=== PATIENT | female | born 1970 | race Two or more races ===

== ENCOUNTER 2020-04-18 12:40 | Outpatient (CLI) | payer OTHER | END 2020-04-18 23:59 | disposition home or self-care (01) | LOC: XR 12:40 | PROVIDERS: ATTEND Specialist | DX: Z01.818 Encounter for other preprocedural examination (principal); T84.54XD Infection and inflammatory reaction due to internal left knee prosthesis, subsequent encounter; Z20.828 Contact with and (suspected) exposure to other viral communicable diseases | CPT/HCPCS: 71046; 87426; C9803; U0003 ==

== ENCOUNTER 2020-04-25 05:01 | Inpatient (IN) | payer OTHER ==
[~2020-04-25] VITALS: Ht 160 cm; Wt 58.1 kg
[~2020-04-25 05:01] MED LIST: ANESTHESIA TRAY IN PYXIS 1 EA TRAY MC ONE
[2020-04-25] MEDS ORDERED: HYDROMORPHONE INJ 2 MG/ML DISP.SYRIN ONE (06:31)
[2020-04-25] MEDS ORDERED: MIDAZOLAM HCL 2 MG/2ML VIAL ONE ×2 (06:31→09:19)
[2020-04-25] MEDS ORDERED: BUPIVACAINE 0.5 % PF 150 MG/30 ML VIAL ONE (06:32)
[2020-04-25] MEDS ORDERED: BACITRACIN 50000 UNITS/VIAL ONE (06:33)
[2020-04-25] MEDS ORDERED: TRANEXAMIC ACID 3,000 MG in SODIUM CHLORIDE IRRIG SOLUTION 70 ML IR ONE (07:00)
[2020-04-25] MEDS ORDERED: HYDROMORPHONE 1 MG/1 ML DISP.SYRIN ONE ×2 (08:51→09:15)
[2020-04-25] MEDS ORDERED: FENTANYL PF 100MCG/2ML AMPUL ONE (08:54)
--- NOTE | 2020-04-25 09:00 | NUR ---
RN OPENING NOTE RECEIVED PATIENT FROM OR, POST L KNEE SURGERY STATUS, KNEE BRACE IN PLACE, INTACT, NO S/SX OF BLEEDING NOTED, A/OX4, ON NC @ 2l, SPO2 IS 99%,NO SOB, OR DISTRESS NOTED REPORTS PAIN LEVEL OF 10/10,WAITING FOR PAIN MANAGEMENT MD TO VISIT HER, SAFETY MEASURES IN PLACE , CALL LIGHT IN REACH, BED IS LOCKED IN LOWEST POSITION, WILL CONT TO MONITOR CLOSELY
[2020-04-25] MEDS ORDERED: HYDROCODONE/APAP 5/325MG TABLET ONE (09:03)
[2020-04-25] MEDS ORDERED: FAMO40TA7 PO (10:01)
[2020-04-25 10:52] VITALS: BP 132/64
--- NOTE | 2020-04-25 11:19 | NUR ---
Patient complains on pain level 10/10 on her L knee, will administer PRN pain med
[2020-04-25] MEDS: HYDROMORPHONE 1 MG/1 ML DISP.SYRIN SQ PRN (11:21)
[2020-04-25 12:00] VITALS: BP 139/70
--- NOTE | 2020-04-25 12:00 | NUR ---
RN NOTE PER PT, HAS NOT RECEIVED INFLUENZA VACCINE THIS YEAR. OFFERED, PT REFUSED. TAUGHT PT BENEFITS OF FLU VAX AND STILL REFUSED
[2020-04-25] MEDS ORDERED: KEY,NONCONTROL,TO KEEP IN PYXI 1 EA MC ONE (12:23)
[2020-04-25] MEDS: HYDROMORPHONE MDV 30 MG in IV NS 0.9% 15 ML, PCA TOTAL VOLUME 1 BAG IV PRN ×3 (12:30)
[2020-04-25] MEDS ORDERED: ANCEF 1 G in IV D5W 50 ML IV SCH (13:30)
[2020-04-25] MEDS ORDERED: COLACE 250 MG CAPSULE PO PRN (13:30)
[2020-04-25] MEDS ORDERED: ZOFRAN 4mg/2ML IV PRN (13:30)
[2020-04-25] MEDS ORDERED: DULCOLAX 10 MG/SUPP.RECT RC PRN (13:30)
[2020-04-25] MEDS ORDERED: SENOKOT 8.6 MG TABLET PO PRN (13:30)
[2020-04-25] MEDS ORDERED: TYLENOL 650 MG TABLET PO PRN (13:30)
--- NOTE | 2020-04-25 13:35 | NUR ---
RN NOTE PER DR MORRIS, OKAY TO GIVE PT 10MG HYDROCODONE BECAUSE SENIOR TECHNICAL SUPPORT ENGINEER PUMP IS NOT WORKING AND PT \STATES 10/10 LT KNEE PAIN. PAIN MEDS ADMINISTERED PER DR LAU
[2020-04-25] MEDS: oxyCODONE IR immediate release 5 MG PO PRN ×2 (13:52→18:19)
[2020-04-25] MEDS ORDERED: diphenhydrAMINE HCL 25 MG CAPSULE PO PRN (14:00)
[2020-04-25] MEDS ORDERED: MAG HYDROX/AL HYDROX/SIMETH 30 ML UDC PO PRN (14:00)
[2020-04-25] MEDS ORDERED: MAGNESIUM HYDROXIDE 30 ML UDC PO PRN (14:00)
[2020-04-25] MEDS ORDERED: OXYC1TAB12 PO (14:01)
[2020-04-25] MEDS ORDERED: LACT1CAP57 PO (14:01)
[2020-04-25] MEDS ORDERED: VANCOMYCIN (14:01)
[2020-04-25] MEDS: ANCEF 1 GM/50 ML D5W IV SCH ×4 (15:09→22:00)
[2020-04-25 16:00] VITALS: BP 133/74
[2020-04-25] MEDS: DOCUSATE SODIUM 100 MG CAPSULE PO SCH (17:12)
[2020-04-25] MEDS: IV D5/0.45 NACL 1,000 ML IV PRN (18:23)
--- NOTE | 2020-04-25 19:15 | NUR ---
RN OPENING NOTES: RECEIVED PT A/OX4 IN BED RESTING COMFORTABLY.PATIENT IN NO S/SX OF ACUTE DISTRESS AT THIS TIME. NO SOB NOTED. PATIENT'S BREATHING IS EVEN AND UNLABORED. PATIENT ONLY SPEAKS [place]. PATIENT IS ON 2 L OF OXYGEN VIA NC; TOLERATING WELL WITH 02 SAT OF 100%. PATIENT ON MS STATUS. NOTED IV SITE ON R UA MIDLINE;PATENT, INTACT AND FLUSHING WELL; NO S/S OF INFECTION OR INFILTRATION. WITH IV FLUID RUNNING ORDERED. WITH ALSO ON PT CONTROLLED SENIOR WEB DEVELOPER PUMP SET UP PER PROTOCOL TO ADDRESS L KNEE PAIN PATIENT HAS BEDPAN OAT BEDSIDE. PATIENT CURRENTLY ON REGULAR DIET.SAFETY MEASURES HAVE BEEN PROVIDED AND IMPLEMENTED. PATIENT BED ALARM IS ON. HEAD OF BED ELEVATED. BED IS LOCKED, IN LOWEST POSITION AND SIDE RAILS UP. CALL LIGHT WITHIN REACH OF THE PATIENT. APPLICABLE ISOLATION PRECAUTIONS IN PLACE. WILL CONTINUE TO MONITOR AND REASSESS FOR ANY CHANGES AND WILL CARRY OUT ANY ONGOING AND ACTIVE MD ORDER.
--- NOTE | 2020-04-25 19:44 | NUR ---
RN CLOSING NOTE PT AWAKE IN BED, A/Ox4 ON NC 2LPM SPO2 100%, NO SIGNS OF SOB OR RESP DISTRESS, BREATHING UNLABORED. PT IS COOPERATIVE W CARE. MEDSURG PT ON PT CONTROLLED PROCESS SAFETY SPECIALIST PUMP SET UP PER DR ORDERS FOR LT KNEE PAIN. PT IS IN PAIN 8 - 10, PAIN MEDS ADMINISTERED PER DR ORDERS. PT IS ABLE TO AMBULATE PER PT W ASSIST AND WALKER. NO BM TODAY, PT ABLE TO VOID. PT HAS RT MIDLINE IV INFUSING D5 1/2 NS AND PT CONTROLLED PROCESS SAFETY SPECIALIST, INTACT AND PATENT. SAFETY PRECAUTIONS IN PLACE, BED LOCKED AND IN LOWEST POSITION, ID BAND ON, PT SEMI FOWLERS, CALL LIGHT WITHIN REACH, SR UP x2. CONTINUE TO MONITOR PT FOR BREAKTHROUGH PAIN. WILL ENDORSE CONTINUATION OF CARE TO ONCOMING NURSE.
[2020-04-25 20:00] VITALS: BP 119/49
[2020-04-25] MEDS ORDERED: VANCOMYCIN 1 GM in IV D5W 250 ML IV ONE (21:00)
[2020-04-25] MEDS: FAMOTIDINE (20 MG) 20 MG TABLET PO SCH (21:37)
[2020-04-25] MEDS ORDERED: AMBIEN 5 MG TABLET PO PRN (22:00)
--- NOTE | 2020-04-25 22:00 | NUR ---
RN NOTES NO NOTED CHANGES TO PATIENT CONDITION/STATUS. VICE ADMIRAL MADE AWARE. WILL CONTINUE TO MONITOR AND REASSESS FOR ANY CHANGES THROUGHOUT THE SHIFT.
--- NOTE | 2020-04-25 23:00 | NUR ---
RN NOTES NOTED ONE OF THE LUMEN OF THE MIDLINE NOT PATENT AFTER SEVERAL ATTEMPTS TO FLUSH. LOOM CLEANER MADE AWARE. FACILITATED INSERTION OF IV ACCESS ON THE R WRIST # 20. ENSURED THAT IV ACCESS TO BE PATENT, INTACT AND FLUSHING WELL. LOOM CLEANER MADE AWARE. WILL CONTINUE TO ASSESS AND MONITOR THROUGHOUT THE SHIFT.
[2020-04-26] MEDS ORDERED: KEY,NONCONTROL,TO KEEP IN PYXI 1 EA MC ONE ×2 (00:18→19:21)
[2020-04-26] MEDS: HYDROMORPHONE MDV 30 MG in IV NS 0.9% 15 ML, PCA TOTAL VOLUME 1 BAG IV PRN ×3 (00:20)
--- NOTE | 2020-04-26 02:00 | NUR ---
RN NOTES NO NOTED CHANGES TO PATIENT CONDITION/STATUS. HARD METALS HAND ENGRAVER MADE AWARE. WILL CONTINUE TO MONITOR AND REASSESS FOR ANY CHANGES THROUGHOUT THE SHIFT.
[2020-04-26] MEDS: IV D5/0.45 NACL 1,000 ML IV PRN ×3 (03:03→21:18)
[2020-04-26] MEDS: oxyCODONE IR immediate release 5 MG PO PRN ×5 (03:48→22:06)
--- NOTE | 2020-04-26 03:48 | NUR ---
RN NOTES PATIENT COMPLAINED OF PAIN AAFTER WAKING UP, PATIENT NOTED TO BE CRYING AND GUARDING BEHAVIOR. WILL ADMINISTER PRN MEDICATION NEEDED. OXY IR SCANNED @0348 GIVEN @0344. CPC CODER MADE AWARE. WILL CONTINUE TO ASSESS AND MONITOR
[2020-04-26 04:00] VITALS: BP 152/70
[2020-04-26] MEDS: HYDROMORPHONE 1 MG/1 ML DISP.SYRIN SQ PRN ×3 (04:02→16:48)
--- NOTE | 2020-04-26 04:30 | NUR ---
RN NOTES PATIENT STILL NOTED TO BE IN PAIN , PATIENT VERBALIZED PAIN AROUND 8,FROM A PAIN SCALE OF 0-10 WHEREIN 0 NO PAIN AND 10 WORST PAIN. PATIENT STILL NOTED TO BE CRYING , MOANING AND WITH GUARDING BEHAVIOR. WILL ADMINISTER ANOTHER PRN PAIN MEDICATION NEEDED. DILAUDID INJ 1ML VIA SB SCANNED AT 0402 ADMINISTERED TO PATIENT @0428. EVIDENCE SPECIALIST MADE AWARE. WILL CONTINUE TO MONITOR AND ASSESS FOR PAIN LEVEL AND VITAL SIGNS.
[2020-04-26 05:00] VITALS: BP 116/62
--- NOTE | 2020-04-26 05:05 | NUR ---
RN NOTES PAIN REASSESSMENT DONE; PATIENT VERBALIZED PAIN REDUCTION TO 2-3 AT THIS TIME. VITAL SIGNS RECHECKED FOLLOWS: BP: 116/62 HR: 90 TEMP: 98.8 RR: 18 O2 SAT: 98. MEAT PRESS OPERATOR MADE AWARE. WILL CONTINUE TO MONITOR AND REASSESS THROUGHOUT THE SHIFT.
[2020-04-26 06:34] LABS: BASOPHILS % (AUTO) 0.9 % (0.0-2.0); EOSINOPHILS % (AUTO) 2.3 % (0.0-6.0); HEMATOCRIT 30 % (33-45); HEMOGLOBIN 9.9 g/dL (11.5-14.8); LYMPHOCYTES # (AUTO) 0.8 /CMM (0.8-4.8); LYMPHOCYTES % (AUTO) 20.6 % (20.0-44.0); MEAN CORPUSCULAR HGB CONC 33 g/dl (31.0-36.0); MEAN CORPUSCULAR VOLUME 84 fL (82-100); MONOCYTES # (AUTO) 0.7 /CMM (0.1-1.30); MONOCYTES % (AUTO) 17.1 % (2.0-12.0); NEUTROPHILS # (AUTO) 2.3 /CMM (1.8-8.9); NEUTROPHILS % (AUTO) 59.1 % (43.0-81.0); PLATELET COUNT (AUTO) 262 /CMM (150-450); RED BLOOD CELL COUNT(AUTO) 3.54 MIL/uL (4.0-5.2); WHITE BLOOD COUNT (AUTO) 3.9 K/uL (4.3-11.0)
--- NOTE | 2020-04-26 06:45 | NUR ---
RN NOTES PATIENT REMAINS IN ROOM IN NO SIGNS OF RESPIRATORY DISTRESS. PATIENT SATURATING 100% OF 02. VITAL SIGNS WNL. IV LINE MAINTAINED, INTACT, PATENT AND FLUSHING, NO SITE REDNESS OR INFILTRATION. SAFETY PRECAUTIONS IN PLACE AND COMFORT MEASURES RENDERED. BED IN LOWEST POSITION, CALL LIGHT WITHIN REACH, BREAKS ON, SIDE RAILS UP. ALL NEEDS ATTENDED, MEDICATIONS GIVEN SCHEDULED AND ORDERED ; SHIFT ASSESSMENT/BEDBATH/SKIN CARE DONE. PATIENT KEPT CLEAN AND DRY. WILL ENDORSE TO INCOMING SHIFT FOR LEWIS WITH ALL PERTINENT INFO REGARDING PATIENT STATUS.
[2020-04-26 06:59] LABS: CALCIUM, SERUM 8.4 mg/dL (8.5-10.1); CREATININE 0.5 mg/dL (0.6-1.3); POTASSIUM 3.3 mmol/L (3.5-5.1)
--- NOTE | 2020-04-26 07:15 | NUR ---
RN OPENING NOTES RECEIVED PT AWAKE, A/O X4. ON 2 L OF OXYGEN VIA NC SATURATING @100%. NO SOB OR ANY ACUTE DISTRESS AT THIS TIME. PT SPEAKS [place] BUT UNDERSTANDS LITTLE DANISH. IV SITE ON R UA MIDLINE INTACT, PATENT AND FLUSHED. ON CONTROLLED ACID BLOWER PUMP SET UP PER PROTOCOL TO ADDRESS L KNEE PAIN. PT USES BEDPAN AT BEDSIDE. REGULAR DIET. SAFETY MEASURES IMPLEMENTED. CALL LIGHT WITHIN REACH. BED LOCKED AND IN LOWEST POSITION WITH SIDE RAILS UP X2. BED ALARM ON. HEAD OF BED ELEVATED. WILL CONTINUE TO MONITOR.
[2020-04-26] MEDS: DOCUSATE SODIUM 100 MG CAPSULE PO SCH ×2 (08:53→17:00)
[2020-04-26] MEDS: FAMOTIDINE (20 MG) 20 MG TABLET PO SCH ×2 (08:53→21:20)
[2020-04-26] MEDS: ASPIRIN EC 325 MG TABLET.DR PO SCH (08:53)
[2020-04-26] MEDS ORDERED: VANCOMYCIN 1 GM in IV D5W 250 ML IV SCH (09:00)
--- NOTE | 2020-04-26 09:00 | NUR ---
RN NOTES DR. MORRIS ORDERED TO CONSUME MECHANICAL CAR CHECKER. CARRIED OUT.
[2020-04-26 10:05] LABS: EOSINOPHILS % (MANUAL) 3 % (0-4); LYMPHOCYTES % (MANUAL) 19 % (16-48); MONOCYTES % (MANUAL) 11 % (0-11.0); NEUTROPHILS % (MANUAL) 67 (42-76)
[2020-04-26] MEDS ORDERED: POTASSIUM CHLORIDE 20 MEQ TAB.PRT.SR PO SCH (11:00)
[2020-04-26] MEDS: VANCOMYCIN 1 GM in IV D5W 250 ML IV SCH ×2 (11:26→19:46)
[2020-04-26 12:00] VITALS: BP 140/64
[2020-04-26] MEDS ORDERED: ASPI-869 PO (13:31)
[2020-04-26] MEDS ORDERED: SENN-261 PO (13:31)
[2020-04-26] MEDS ORDERED: VANC1FRO2 IV (13:31)
[2020-04-26] MEDS ORDERED: OXYC5CAP18 PO (13:31)
--- NOTE | 2020-04-26 19:15 | NUR ---
RN NOTES: RECEIVED PT A/OX4 IN BED RESTING COMFORTABLY.PATIENT IN NO S/SX OF ACUTE DISTRESS AT THIS TIME. NO SOB NOTED. PATIENT'S BREATHING IS EVEN AND UNLABORED. PATIENT ONLY SPEAKS GREENLAND[place]. PATIENT IS ON 2L OF OXYGEN VIA NC; TOLERATING WELL WITH 02 SAT OF 100%. PATIENT ON MS STATUS. NOTED IV SITE ON R UA MIDLINE AND R WRIST #20; BOTH PATENT, INTACT AND FLUSHING WELL; NO S/S OF INFECTION OR INFILTRATION. WITH IV FLUID RUNNING ORDERED.PATIENT HAS BEDPAN AT BEDSIDE. PATIENT CURRENTLY ON REGULAR DIET.SAFETY MEASURES HAVE BEEN PROVIDED AND IMPLEMENTED. PATIENT BED ALARM IS ON. HEAD OF BED ELEVATED. BED IS LOCKED,IN LOWEST POSITION AND SIDE RAILS UP. CALL LIGHT WITHIN REACH OF THE PATIENT. APPLICABLE ISOLATION PRECAUTIONS IN PLACE. WILL CONTINUE TO MONITOR AND REASSESS FOR ANY CHANGES AND WILL CARRY OUT ANY ONGOING AND ACTIVE MD ORDER.
--- NOTE | 2020-04-26 19:38 | NUR ---
RN OPENING NOTES PT AWAKE, A/O X4. ON 2 L OF OXYGEN VIA NC SATURATING @100%. NO SOB OR ANY ACUTE DISTRESS AT THIS TIME. PT SPEAKS [place] BUT UNDERSTANDS LITTLE ARMENIAN. IV SITE ON R UA MIDLINE INTACT, PATENT AND FLUSHED. PT USES BEDPAN AT BEDSIDE. REGULAR DIET. SAFETY MEASURES IMPLEMENTED. CALL LIGHT WITHIN REACH. BED LOCKED AND IN LOWEST POSITION WITH SIDE RAILS UP X2. BED ALARM ON. HEAD OF BED ELEVATED. WILL ENDORSE TO NIGHT NURSE FOR LEWIS.
[2020-04-26 20:00] VITALS: BP 135/68
--- NOTE | 2020-04-26 22:30 | NUR ---
RN NOTES NO NOTED CHANGES TO PATIENT CONDITION/STATUS. ORDER ENTRY MADE AWARE. WILL CONTINUE TO MONITOR AND REASSESS FOR ANY CHANGES THROUGHOUT THE SHIFT.
--- NOTE | 2020-04-27 03:00 | NUR ---
RN NOTES NO NOTED CHANGES TO PATIENT CONDITION/STATUS. CARPENTER'S HELPER MADE AWARE. WILL CONTINUE TO MONITOR AND REASSESS FOR ANY CHANGES THROUGHOUT THE SHIFT. CALL LIGHT WITHIN REACH.
[2020-04-27] MEDS: VANCOMYCIN 1 GM in IV D5W 250 ML IV SCH ×2 (03:24→11:00)
[2020-04-27 04:00] VITALS: BP 102/60
[2020-04-27] MEDS: IV D5/0.45 NACL 1,000 ML IV PRN (05:04)
[2020-04-27] MEDS: oxyCODONE IR immediate release 5 MG PO PRN ×4 (05:06→18:31)
--- NOTE | 2020-04-27 06:05 | NUR ---
RN NOTES RECEIVED CALL FROM CHECKING ON THE CURRENT STATUS OF PT AND PAIN EXPERIENCE, RN ADVISED HIM THAT PT STILL HAS EPISODES OF PAIN BUT VERY MUCH TOLERABLE COMPARED TO THE PREVIOUS DAYS. MD WAS ADVISED THAT PT WAS GIVEN PRN PAIN MEDICATIONS @2007 (TYLENOL) AND @0506 (OXYCODONE). MD SAID TO CALL HIM IF THERE'S ANY SIGNIFICANT CHANGES OR ANY NEEDS TO BE ADDRESSED. RN ACKNOWLEDGED. MEDICAL CARE ADMINISTRATOR MADE AWARE. WILL CONTINUE TO ASSESS AND MONITOR UNTIL THE END OF SHIFT.
[2020-04-27 06:06] LABS: CREATININE 0.7 mg/dL (0.6-1.3); POTASSIUM 3.7 mmol/L (3.5-5.1)
--- NOTE | 2020-04-27 06:50 | NUR ---
RN CLOSING NOTE: PATIENT REMAINS IN ROOM. NO SIGNS OF RESPIRATORY DISTRESS. SAFETY MEASURES IMPLEMENTED, BED IN LOWEST POSITION, LOCKED, SIDE RAILS UP, CALL LIGHT WITHIN REACH. ALL NEEDS AND ORDERS ADDRESSED DURING THE SHIFT. ALL DUE MEDS GIVEN ORDERED & SCHEDULED ; PATIENT TOLERATED WELL.PATIENT KEPT CLEAN AND COMFORTABLE WITHIN THE SHIFT. ENDORSED TO INCOMING SHIFT RN FOR CONTINUITY OF CARE.
--- NOTE | 2020-04-27 07:05 | NUR ---
RN OPENING NOTES RECEIVED PT AWAKE, A/O X4. ON 2 L OF OXYGEN VIA NC SATURATING @100%. NO SOB OR ANY ACUTE DISTRESS AT THIS TIME. PT SPEAKS GREEK BUT UNDERSTANDS LITTLE NIGERIAN. IV SITE ON R UA MIDLINE INTACT, PATENT AND FLUSHED. PT USES BEDPAN AT BEDSIDE. REGULAR DIET. SAFETY MEASURES IMPLEMENTED. CALL LIGHT WITHIN REACH. BED LOCKED AND IN LOWEST POSITION WITH SIDE RAILS UP X2. BED ALARM ON. HEAD OF BED ELEVATED. WILL CONTINUE TO MONITOR.
[2020-04-27] MEDS: FAMOTIDINE (20 MG) 20 MG TABLET PO SCH (08:24)
[2020-04-27] MEDS: ASPIRIN EC 325 MG TABLET.DR PO SCH (08:24)
[2020-04-27] MEDS: DOCUSATE SODIUM 100 MG CAPSULE PO SCH ×2 (08:24→17:00)
[2020-04-27] MEDS: HYDROMORPHONE 1 MG/1 ML DISP.SYRIN SQ PRN ×2 (10:49→15:26)
[2020-04-27 12:00] VITALS: BP 133/70
--- NOTE | 2020-04-27 13:49 | NUR ---
FOLLOWUP WITH DRAFTER PLUMBING PETER STILL PENDING PLACEMENT.
--- NOTE | 2020-04-27 17:30 | NUR ---
RN NOTES REPORT GIVEN TO ASHOK LYON OF [facility]. STATOR PLATE WASHER TIME AROUND 1800
--- NOTE | 2020-04-27 19:00 | NUR ---
RN NOTES PT DISCHARGED IN STABLE CONDITION. ACCOMPANIED BY AMBULANCE CREW. VS WNL. PT DISCHARGE INSTRUCTION PRINTED IN THAI. REFUSED VACCINES DESPITE EDUCATION X3. SKIN INTACT.
== END 2020-04-27 18:51 | DRG 468 ==
LOC: DS 05:01 → MEDSG1 09:52
PROVIDERS: ADMIT Student in an Organized Health Care Education/Training Program; ATTEND Student in an Organized Health Care Education/Training Program
PROC: 0SPD0JZ Removal of Synthetic Substitute from Left Knee Joint, Open Approach (ICD-10-PCS; principal; 2020-04-25)
PROC: 0SRD0EZ Replacement of Left Knee Joint with Articulating Spacer, Open Approach (ICD-10-PCS; 2020-04-25)
DX: T84.54XA Infection and inflammatory reaction due to internal left knee prosthesis, initial encounter (principal); Y83.1 Surgical operation with implant of artificial internal device as the cause of abnormal reaction of the patient, or of later complication, without mention of misadventure at the time of the procedure; Y92.89 Other specified places as the place of occurrence of the external cause; K66.0 Peritoneal adhesions (postprocedural) (postinfection); M65.9 Synovitis and tenosynovitis, unspecified; M10.9 Gout, unspecified; E78.5 Hyperlipidemia, unspecified; D64.9 Anemia, unspecified; E87.6 Hypokalemia; C69.91 Malignant neoplasm of unspecified site of right eye
CPT/HCPCS: 36415; 80048-TC; 80202-TC; 84703-TC; 85025-TC; 87070-TC; 87081-TC; 88300-TC; 88305-TC; 88311-TC; 97110-TC; 97112-TC; 97116-TC; 97530-TC; A4217; C1713; C1751; G0378; J0690; J1100; J1170; J1885; J2250; J2405; J2704; J3010; J3370; J3490; J7042; J7050; J7060; L1830

== ENCOUNTER 2020-07-22 14:28 | Outpatient (CLI) | payer OTHER ==
[~2020-07-22 14:28] MED LIST changes: -ANESTHESIA TRAY IN PYXIS 1 EA TRAY MC ONE; +ASPI-869 PO; +LACT1CAP57 PO; +OXYC1TAB12 PO; +OXYC5CAP18 PO; +SENN-261 PO; +VANC1FRO2 IV
== END 2020-07-22 23:59 | disposition home or self-care (01) ==
LOC: RAD 14:28
PROVIDERS: ATTEND Internal Medicine
DX: Z01.818 Encounter for other preprocedural examination (principal)
CPT/HCPCS: 71045-TC

== ENCOUNTER 2020-07-24 11:03 | Outpatient (CLI) | payer OTHER | END 2020-07-24 23:59 | disposition home or self-care (01) | LOC: LAB 11:03 | PROVIDERS: ATTEND Specialist | DX: Z01.812 Encounter for preprocedural laboratory examination (principal); Z20.822 Contact with and (suspected) exposure to COVID-19 | CPT/HCPCS: 87426; C9803; U0003 ==

== ENCOUNTER 2020-07-29 05:18 | Inpatient (IN) | payer OTHER ==
[~2020-07-29] VITALS: Ht 160 cm; Wt 58.3 kg
[2020-07-29] VITALS (17 sets, daily range): BP systolic 116–144; BP diastolic 55–83
[2020-07-29] MEDS ORDERED: ANESTHESIA TRAY IN PYXIS 1 EA TRAY MC ONE (05:52)
--- NOTE | 2020-07-29 06:00 | NUR ---
MS/RN OPENING NOTES PATIENT ARRIVED ON UNIT VIA WHEELCHAIR. PATIENT IS ALERT AND ORIENTED X 4. PATIENT STAND BY ASSIST TRANSFER TO BED SAFETY. PATIENT BREATHING IS EVEN AND UNLABORED. PATIENT IN NO SIGNS OF DISTRESS. PATIENT STABLE ON ROOM AIR. PATIENT FOR DAY SURGERY OF LEFT KNEE. PATIENT SIGNED ALL PAPER WORK AND BELONGINGS LIST. PATIENT V/S WITHIN NORMAL LIMITS.
--- NOTE | 2020-07-29 06:05 | NUR ---
MS/RN NOTES PATIENT TRANSFERRED TO OR VIA BED. PATIENT IN STABLE CONDITION UPON TRANSFER.
[2020-07-29] MEDS ORDERED: BUPIVACAINE 0.5 % PF 150 MG/30 ML VIAL ONE (06:06)
[2020-07-29] MEDS ORDERED: LIDOCAINE 1% INJ 50 ML MDV IJ ONE (06:07)
[2020-07-29] MEDS ORDERED: BUPIVACAINE 0.25% 75 MG/30 ML VIAL ONE (06:07)
[2020-07-29] MEDS ORDERED: BACITRACIN 50000 UNITS/VIAL ONE (06:07)
[2020-07-29] MEDS ORDERED: FENTANYL PF 100MCG/2ML AMPUL ONE ×3 (06:30→09:55)
[2020-07-29] MEDS ORDERED: MIDAZOLAM HCL 2 MG/2ML VIAL ONE (06:30)
[2020-07-29] MEDS ORDERED: HYDROMORPHONE INJ 2 MG/ML DISP.SYRIN ONE (07:19)
--- NOTE | 2020-07-29 07:23 | NUR ---
MS RN OPENING NOTE RECEIVED REPORT FROM NEWS AGENT NURSE THAT PT IS IN SURGERY AT THIS TIME. WILL AWAIT RETURN TO UNIT, ASSESS AND CONTINUE TO MONITOR.
[2020-07-29] MEDS ORDERED: TRANEXAMIC ACID 3,000 MG in SODIUM CHLORIDE IRRIG SOLUTION 70 ML IR ONE (09:00)
[2020-07-29] MEDS ORDERED: MAGNESIUM HYDROXIDE 30 ML UDC PO PRN (09:30)
[2020-07-29] MEDS ORDERED: diphenhydrAMINE HCL 25 MG CAPSULE PO PRN (09:30)
[2020-07-29] MEDS ORDERED: HYDROMORPHONE 1 MG/1 ML DISP.SYRIN ONE (09:42)
[2020-07-29] MEDS: oxyCODONE IR immediate release 5 MG PO PRN ×3 (11:00→21:51)
--- NOTE | 2020-07-29 12:02 | NUR ---
MS RN NOTES PT RETURNED TO UNIT VIA HER BED ACCOMPANIED BY O.R. NURSE JOSÉ MIGUEL AND O.R. TRANSPORTER S/P REMOVAL OF CEMENT SPACER, TOTAL LEFT KNEE REVISION BY BEVERLEY CARD. PT IS A/O X4. ABLE TO MAKE NEEDS KNOWN. [place]THER[place] IRISH SPEAKING. C/O PAIN ON LEFT KNEE WITH SCALE OF 7/10, PRN OXY IR 10MG PO GIVEN ORDERED. DRESSING ON LEFT KNEE C/D/I/ WRAPPED WITH PAULINE BANDAGE AND WITH KNEE IMMOBILIZER. MD ONLY TO CHANGE DRESSING. B/L SCD'S IN PLACE. PT ON SUPPLEMENTAL 02 VIA N/C AT 2LPM AT THIS TIME, BREATHING EVEN AND UNLABORED. DOUBLE LUMEN TERESA PICC LINE IN PLACE, PATENT AND FLUSHES WELL. SAFETY MEASURES IMPLEMENTED: BED PLACED IN LOWEST LOCKED POSITION, SR UP X2, BED ALARM ON AND CALL LIGHT W/IN EASY REACH OF PT. WILL CONTINUE TO MONITOR PT.
[2020-07-29] MEDS ORDERED: SENNOSIDES 8.6 MG TABLET PO PRN (12:30)
[2020-07-29] MEDS ORDERED: ACETAMINOPHEN 325 MG TABLET PO PRN (12:30)
[2020-07-29] MEDS ORDERED: ZOLPIDEM TARTRATE 5 MG TABLET PO PRN (12:30)
[2020-07-29] MEDS ORDERED: BISACODYL SUPP (10 MG) 10 MG/SUPP.RECT SUPP.RECT RC PRN (12:30)
[2020-07-29] MEDS ORDERED: DOCUSATE SODIUM 250 MG CAPSULE PO PRN (12:30)
[2020-07-29] MEDS ORDERED: HYDROCODONE/APAP 5/325MG TABLET PO PRN (12:30)
[2020-07-29] MEDS: IV D5/0.45 NACL 1,000 ML IV PRN ×2 (12:42→21:52)
[2020-07-29] MEDS ORDERED: OMEP20CA15 PO (13:15)
[2020-07-29] MEDS ORDERED: DOCU-141 PO (13:15)
[2020-07-29] MEDS: HYDROMORPHONE 1 MG/1 ML DISP.SYRIN SQ PRN ×2 (14:45→15:16)
--- NOTE | 2020-07-29 14:45 | NUR ---
RN NOTES PHYSICAL EVALUATION DONE BY JAME. PER JAME, PT IN PAIN AND WILL APPLY CPM TOMORROW. CPM MACHINE AT BEDSIDE.
--- NOTE | 2020-07-29 14:49 | NUR ---
RN NOTES P PT C/O LEFT KNEE PAIN 8/10 SCALE AFTER PHYSICAL EVALUATION. PRN DILAUDID 1MG/ML ADMINISTERED SUBQ AT 1445. WILL CONTINUE TO MONITOR AND REASSESS PT.
[2020-07-29] MEDS: ANCEF 1 GM/50 ML D5W IV SCH ×4 (15:11→22:47)
[2020-07-29] MEDS ORDERED: DOCUSATE SODIUM 100 MG CAPSULE PO SCH (17:00)
[2020-07-29] MEDS: ONDANSETRON HCL/PF 4 MG/2 ML VIAL IVP PRN (17:38)
--- NOTE | 2020-07-29 17:38 | NUR ---
RN NOTE PT COMPLAINED OF NAUSEA. DENIES VOMITING. REQUESTED MEDICATION FOR NAUSEA. PRN ZOFRAN 4MG/2ML ADMINISTERED IVP AT 1738. WILL CONTINUE TO MONITOR AND REASSESS PT.
[2020-07-29] MEDS ORDERED: MAG HYDROX/AL HYDROX/SIMETH 30 ML UDC PO PRN (18:30)
[2020-07-29] MEDS ORDERED: MENTHOL/CETYLPYRD (CEPACOL) 1 LOZ LOZENGE PO PRN (18:30)
--- NOTE | 2020-07-29 18:42 | NUR ---
MS RN CLOSING NOTES PT AWAKE IN BED AT THIS TIME. A/O X4. ABLE TO MAKE NEEDS KNOWN. DRESSING ON LEFT KNEE C/D/I/ WRAPPED WITH PAULINE BANDAGE. BLE SCD'S IN PLACE. ON ROOM AIR, TOLERATING WELL WITH NO SOB NOTED. TERESA PICC LINE IN PLACE WITH IVF OF D5 1/2 NS @ 125ML/HR. ALL NEEDS AND CARE ATTENDED WELL. SAFETY MEASURES MAINTAINED: BED IN LOWEST LOCKED POSITION, SR UP X2, BED ALARM ON AND CALL LIGHT W/IN EASY REACH OF PT. WILL ENDORSE LEWIS TO NIGHT NURSE.
--- NOTE | 2020-07-29 19:30 | NUR ---
MS RN OPENING NOTE RECEIVED PATIENT IN BED. A/OX3 TAMAZIGHT SPEAKING, ABLE TO MAKE BASIC NEEDS KNOWN. TOLERATING ROOM AIR. RESPIRATIONS ARE EVEN AND UNLABORED. NO S/SS OB NOTED. NO C/O PAIN AT THIS TIME. IN NO APPARENT DISTRESS. IV ACCESS IN TERESA PICC LIKE RUNNING D51/2NS@125ML/HR. BED IS LOW AND LOCKED, HOB ELEVATED IN SEMI BRENNAN, SIDE RIAL SUP X2. CALL LIGHT WITHIN REACH. WILL CONTINUE TO MONITOR THROUGHOUT SHIFT.
[2020-07-29] MEDS: FAMOTIDINE (20 MG) 20 MG TABLET PO SCH (21:49)
--- NOTE | 2020-07-29 23:46 | NUR ---
MS RN NOTE PATIENT IS HAVING DIFFICULTY PASSING A BM. HAS BEEN ON BEDPAN AND FEEL CONSTIPATED. REQUEST FOR MEDICATION TO HELP WITH CONSTIPATION. MOM ADMINISTERED WELL SENEKOT.
[2020-07-30] MEDS: oxyCODONE IR immediate release 5 MG PO PRN ×4 (02:21→16:32)
[2020-07-30] MEDS: IV D5/0.45 NACL 1,000 ML IV PRN (05:37)
[2020-07-30 06:56] LABS: HEMOGLOBIN 9.3 g/dL (11.5-14.8)
[2020-07-30] MEDS: HYDROMORPHONE 1 MG/1 ML DISP.SYRIN SQ PRN (07:05)
--- NOTE | 2020-07-30 07:58 | NUR ---
MS RN CLOSING NOTE PATIENT RESTING IN BED. A/OX3. REMAINS TOLERATING ROOM AIR. NO RESP DISTRESS. WAS USING THE INCENTIVE SPIROMETER THROUGHOUT THE NIGHT. MANAGED PAIN WITH OXY IR MAJORITY OF SHIFT. PATIENT KEPT GETTING UP TO USE THE BED ADAMS AND DILUADID HELP WITH THE REMAINING PAIN AT THE END OF SHIFT. PATIENT ALSO C/O CONSTIPATION, MOM AND SENEKOT GIVEN. NO BM DURING SHIFT. WANTS TO GO ONTO BSC. NO DISTRESS. IV ACCESS MAINTAINED IN TERESA PICC LIKE RUNNING D51/2NS@125ML/HR. BED REMAINS LOW AND LOCKED, HOB ELEVATED IN SEMI BRENNAN, SIDE RIAL SUP X2. CALL LIGHT WITHIN REACH. WILL ENDORSE TO ONCOMING SHIFT.
[2020-07-30 08:00] VITALS: BP 119/50
--- NOTE | 2020-07-30 08:00 | NUR ---
MS RN OPENING NOTES PATIENT RESTING IN BED, AWAKE AND VERBALLY RESPONSIVE. A/O X3, ALBANIAN-SPEAKING, UNDERSTANDS SOME ESTONIAN. BREATHING EVEN AND UNLABORED, TOLERATING ROOM AIR. TERESA PICC INTACT AND PATENT, IVF OF D5 1/2 NS INFUSING. ABLE TO USE CALL LIGHT FOR ASSISTANCE. SAFETY PRECS IN PLACE. WILL CONTINUE TO MONITOR.
[2020-07-30] MEDS: FAMOTIDINE (20 MG) 20 MG TABLET PO SCH (08:33)
[2020-07-30] MEDS: DOCUSATE SODIUM 100 MG CAPSULE PO SCH ×2 (08:34→17:00)
[2020-07-30] MEDS ORDERED: ASPIRIN 325 MG TABLET PO SCH (09:00)
[2020-07-30] MEDS ORDERED: OMEPRAZOLE 20 MG CAPSULE.DR PO PRN (10:00)
[2020-07-30] MEDS ORDERED: DOCUSATE SODIUM 100 MG CAPSULE PO PRN (10:00)
--- NOTE | 2020-07-30 11:48 | NUR ---
RN NOTES LEFT MESSAGE TO DR. CESAR'S OFFICE FOR DISCHARGE ORDER FOR PATIENT, AWAITING CALL BACK, CHARGE NURSE AWARE.
[2020-07-30] MEDS: ONDANSETRON HCL/PF 4 MG/2 ML VIAL IVP PRN (12:49)
--- NOTE | 2020-07-30 13:23 | NUR ---
RN NOTES PATIENT SEEN BY WELLINGTON FLOYD, TODAY CARE OF DR. CESAR.
[2020-07-30] MEDS ORDERED: ASPI-992 PO (15:53)
[2020-07-30] MEDS ORDERED: HYDR-4275 PO (15:53)
--- NOTE | 2020-07-30 15:56 | NUR ---
RN NOTES ISAAK FROM [facility] INFORMED ABOUT PATIENT'S DISCHARGE; OK TO GIVE THEM A CALL ONCE DISCHARGE PROCESS HAS BEEN COMPLETED.
[2020-07-30 16:00] VITALS: BP 112/50
--- NOTE | 2020-07-30 18:09 | NUR ---
MUSEUM REGISTRAR NOTES PATIENT WAS SEEN BY MD TODAY; CLEARED BY ALICIA LOPEZ NP, FOR DISCHARGE FOLLOWING LE ULTRASOUND. DR. GILL W/ ORDER NOTED TO DISCHARGE TO HOME W/ HOME HEALTH AND PHYS[facility]ERAPY. DISCHARGE INSTRUCTION AND EDUCATION PROVIDED TO PATIENT, TRANSLATED BY MANAGER INTERNET [employer]S SALES; VERBALIZED UNDERSTANDING. DR. MORRIS SEEN PATIENT WELL. DISCHARGE FORM AND BELONGINGS LIST FORM SIGNED BY PATIENT. BELONGINGS ACCOUNTED FOR. TERESA PICC LINE REMOVED, NO BLEEDING NOTED. TRANSPORTATION ALREADY ARRANGED W/ [facility] BY WORKER'S [employer] PER DAVID WILLIAMSON. PATIENT WAS ACCOMPANIED BY DELORES HERNÁNDEZ, VIA WHEELCHAIR TO THE LOBBY AND PICKED UP BY TRANSPORTATION. CHARGE NURSE AND MD AWARE OF DISCHARGE.
== END 2020-07-30 18:00 | disposition home or self-care (01) | DRG 468 ==
LOC: DS 05:18 → MED 05:23
PROVIDERS: ADMIT Nurse Practitioner Acute Care; ATTEND Nurse Practitioner Acute Care
PROC: 0SPD0JZ Removal of Synthetic Substitute from Left Knee Joint, Open Approach (ICD-10-PCS; principal; 2020-07-29)
PROC: 0SRD0J9 Replacement of Left Knee Joint with Synthetic Substitute, Cemented, Open Approach (ICD-10-PCS; 2020-07-29)
DX: T84.54XA Infection and inflammatory reaction due to internal left knee prosthesis, initial encounter (principal); Z96.652 Presence of left artificial knee joint; M65.9 Synovitis and tenosynovitis, unspecified; K21.9 Gastro-esophageal reflux disease without esophagitis; Y92.009 Unspecified place in unspecified non-institutional (private) residence as the place of occurrence of the external cause; Y83.1 Surgical operation with implant of artificial internal device as the cause of abnormal reaction of the patient, or of later complication, without mention of misadventure at the time of the procedure
CPT/HCPCS: 36415; 84703-TC; 85027-TC; 87070-TC; 87075-TC; 87081-TC; 93971-TC; 97112-TC; 97116-TC; 97530-TC; A4217; C1713; C1776; G0378; J0690; J1170; J2250; J2405; J2704; J3010; J3490; J7060; L1830